=== PATIENT | male | born 1930 | race Caucasian/White ===

== ENCOUNTER 2017-08-05 12:24 | Outpatient (CLI) | payer OTHER | END 2017-08-05 12:25 | disposition critical access hospital (66) | LOC: EMS 12:24 | PROVIDERS: ATTEND Surgery | DX: M25.551 Pain in right hip (principal); M25.512 Pain in left shoulder; W01.0XXA Fall on same level from slipping, tripping and stumbling without subsequent striking against object, initial encounter; Y93.01 Activity, walking, marching and hiking; Y92.009 Unspecified place in unspecified non-institutional (private) residence as the place of occurrence of the external cause | CPT/HCPCS: A0425; A0427 ==

== ENCOUNTER 2017-08-05 13:00 | Emergency (ER) | payer OTHER ==
--- NOTE | 2017-08-05 13:29 | ED Physician Documentation ---
PD HPI Fall - Stated complaint Stated Complaint: GLF - Chief complaint Chief Complaint: Ext Problem - History obtained from History obtained from: Patient - History of Present Illness Mechanism of injury: Tripped (over extension cord, without preceding symptoms, verified by who was with him. Fell to left side with pain shoulder mainly, some of chestwall, left knee, and some pain righ foot that twisted with the cord.) Fall distance: Standing position Where injury occurred: Home Timing - onset: Today (just [employer]) Injury(ies) location: Chest, Left Uppper Extremity (shoulder pain with any ROM.) , Right Lower Extremity (foot twisted), Left Lower Extremity (knee contusion/ abrasion). No: Head, Neck Associated symptoms: No: LOC, AMS, Neck pain, Weakness, Paresthesias Worsens with: Movement Contributing factors: No: Anticoagulated, Intoxicated Similar symptoms before: Has not had sx before Recently seen: Not recently seen Review of Systems Constitutional: denies: Fever, Chills Nose: denies: Rhinorrhea / runny nose, Congestion Throat: denies: Sore throat Cardiac: reports: Chest pain / pressure (mild left lateral where he landed). denies: Palpitations, Pedal edema, Calf pain Respiratory: denies: Dyspnea, Cough, Wheezing GI: denies: Abdominal Pain, Nausea, Vomiting, Diarrhea Skin: reports: Abrasion (s) (left knee). denies: Laceration (s) Musculoskeletal: denies: Neck pain, Back pain Neurologic: denies: Generalized weakness, Focal weakness, Numbness, Near syncope , Syncope, Altered mental status, Headache, Head injury Endocrine: denies: Weight loss Immunocompromised: denies: Immunocompromised PD PAST MEDICAL HISTORY - Past Medical History Past Medical History: Yes Cardiovascular: None Respiratory: None : Other - Present Medications Home Medications: Ambulatory Orders Medication Instructions Recorded Confirmed Atorvastatin Calcium 40 mg PO QPM 09/30/14 08/05/17 Cyanocobalamin (Vitamin B-12) 1,000 mcg PO DAILY 07/23/16 08/05/17 [B-12] Enzalutamide [Xtandi] 4 cap PO 1200 07/23/16 08/05/17 Cholecalciferol (Vitamin D3) 2,000 units PO DAILY 07/24/16 08/05/17 [Vitamin D3] Goserelin [Zoladex] 10.8 mg SUBQ [id number] 07/24/16 08/05/17 Acetaminophen [Tylenol] 650 mg PO Q4HR PRN #0 tablet 07/28/16 08/05/17 Docusate Sodium 250Mg Capsule 250 - 500 mg PO DAILY capsule 07/28/16 08/05/17 [Colace 250Mg Capsule] Senna [Senokot] 8.6 - 17.2 mg PO DAILY tablet 07/28/16 08/05/17 HYDROcod/ACETAM 5/325 [Noxon 5/325] 1 tab PO Q6H PRN #15 tablet 08/05/17 Naproxen 375 mg PO BID #20 tablet 08/05/17 - Allergies Allergies/Adverse Reactions: Allergies Allergy/AdvReac Type Severity Reaction Status Date / Time No Known Drug Allergies Allergy Verified 07/23/16 19:28 - Social History Does the pt smoke?: No Smoking Status: Never smoker Does the pt drink ETOH?: Yes Does the pt have substance abuse?: No - Family History Family history: reports: Non contributory - Immunizations Immunizations are current?: Yes - POLST Patient has POLST: No PD ED PE NORMAL - Vitals Vital signs reviewed: Yes - General General: Alert and oriented X 3, Well developed/nourished - HEENT HEENT: Atraumatic - Neck Neck: Supple, no meningeal sign, No adenopathy - Cardiac Cardiac: RRR, No murmur - Respiratory Respiratory: Clear bilaterally, Other (some chestwall tenderness left side. ) - Abdomen Abdomen: Soft, Non tender - Male Male : Deferred - Rectal Rectal: Deferred - Derm Derm: Normal color, Warm and dry, Other (abrasion left knee without effusion and has good ROM. ) - Extremities Extremities: Other (right foot with some tenderness on ROM through mid foot. No ankle tenderness. Left shoulder tender at proximal humerus and pain with any attempted ROM. Some swelling deformity noted. ) - Neuro Neuro: No motor deficit, No sensory deficit, Other (good pulses, color and cap refill in hand/fingers. ) Results - Vitals Vitals: Oxygen O2 Source Room air - Labs Labs: Laboratory Tests 08/05/17 17:13 POC Whole Bld Glucose 172 H - Rads (name of study) left shoulder Radiology: Prelim report reviewed (proximal humeral neck fracture, displaced, minimally angulated.) chest Radiology: Prelim report reviewed (no acute deformity) left knee Radiology: Prelim report reviewed (no fracture) right foot Radiology: Prelim report reviewed (no fracture) PD MEDICAL DECISION MAKING - ED course Complexity details: reviewed results, considered differential, d/w patient, d/w foreign law consultant (Dr. Mcallister, who reviewed the xrays and recommended sling/conservative with followup. ) Departure - Departure Disposition: 01 Home, Self Care Clinical Impression: Fall from slip, trip, or stumble Qualifiers: Encounter type: initial encounter Qualified Code(s): W01.0XXA - Fall on same level from slipping, tripping and stumbling without subsequent striking against object, initial encounter Fx humeral neck Qualifiers: Encounter type: initial encounter Fracture type: closed Laterality: left Qualified Code(s): S42.212A - Unspecified displaced fracture of surgical neck of left humerus, initial encounter for closed fracture Contusion, knee Qualifiers: Encounter type: initial encounter Laterality: left Qualified Code(s): S80.02XA - Contusion of left knee, initial encounter Chest wall contusion Qualifiers: Encounter type: initial encounter Laterality: left Qualified Code(s): S20.212A - Contusion of left front wall of thorax, initial encounter Foot sprain Qualifiers: Encounter type: initial encounter Laterality: left Qualified Code(s): S93.602A - Unspecified sprain of left foot, initial encounter Condition: Stable Record reviewed to determine appropriate education?: Yes Instructions: ED Fx Shoulder Follow-Up: Feliciano Palumbo MD [Provider Admit Priv/Credential] - Prescriptions: HYDROcod/ACETAM 5/325 [Noxon 5/325] 1 tab PO Q6H PRN #15 tablet PRN Reason: Pain Naproxen 375 mg PO BID #20 tablet Comments: Sling for the shoulder for the next 4-6 weeks likely. Follow-up with orthopedics in 1 week, call today or tomorrow for an appointment. Find the best position of comfort for the shoulder fracture. Use naproxen or ibuprofen twice daily for the pain and add Tylenol or hydrocodone if needed. Drink lots of fluids. Continue your other usual medications. Discharge Date/Time: 08/05/17 18:54
--- NOTE | 2017-08-05 14:37 | XRAY Preliminary Report ---
Exam: XR CHEST 2 VIEW X-RAY IMPRESSION: 1. No acute cardiopulmonary disease seen. 2. No displaced acute rib fractures are seen. Moderate L1 compression deformity and mild compression deformities at multiple levels in the lower thoracic spine, appear more chronic, however acute compre ssion fracture is not excluded in the appropriate clinical setting. Acute left humeral neck fracture. [facility] SITE ID: [id number]
--- NOTE | 2017-08-05 14:44 | XRAY Report ---
EXAM: CHEST RADIOGRAPHY EXAM DATE: 08/05/2017 02:23 PM. CLINICAL HISTORY: Chest pain left sided. Fall. COMPARISON: Ribs and chest 09/30/2014. TECHNIQUE: 2 views. FINDINGS: Lungs/Pleura: No consolidation, pleural effusion or pneumothorax. Mediastinum: Heart and mediastinal contours are unremarkable. Other: No displaced acute rib fractures are seen. Moderate L1 compression deformity and mild compress ion deformities at multiple levels in the lower thoracic spine appear more chronic; however, acute co mpression fracture is not excluded in the appropriate clinical setting. Acute left humeral neck fract ure. IMPRESSION: 1. No acute cardiopulmonary disease seen. 2. No displaced acute rib fractures are seen. Moderate L1 compression deformity and mild compression deformities at multiple levels in the lower thoracic spine appear more chronic; however, acute compre ssion fracture is not excluded in the appropriate clinical setting. Acute left humeral neck fracture. [facility] Referring Provider Line: [phone] SITE ID: [id number]
--- NOTE | 2017-08-05 14:44 | XRAY Preliminary Report ---
Exam: XR FOOT 3 VIEW RT IMPRESSION: 1. Flattened appearance of the first metatarsal head with cortical irregularity at the articular surf jose lateral aspect along with osteophytes consistent with moderate first metatarsophalangeal osteoart hritis. Acute first metatarsal head fracture not excluded in the appropriate clinical setting. [facility] SITE ID: [id number]
--- NOTE | 2017-08-05 14:45 | XRAY Report ---
EXAM: LEFT SHOULDER RADIOGRAPHY EXAM DATE: 08/05/2017 02:23 PM. CLINICAL HISTORY: Injury. Fall, left shoulder injury. COMPARISON: Chest/RIBS 09/30/2014. TECHNIQUE: 3 views. FINDINGS: Bones: New acute impacted left humeral neck fracture with mild lateral displacement. Joints: No dislocation. Mild acromioclavicular and glenohumeral degenerative joint disease. IMPRESSION: New acute impacted left humeral neck fracture with mild lateral displacement. [facility] Referring Provider Line: [phone] SITE ID: [id number]
--- NOTE | 2017-08-05 14:45 | XRAY Report ---
EXAM: RIGHT FOOT RADIOGRAPHY EXAM DATE: 08/05/2017 02:21 PM. CLINICAL HISTORY: Fall; tripped and fell. COMPARISON: None. TECHNIQUE: 3 views. FINDINGS: Flattened appearance of the first metatarsal head with cortical irregularity at the articul ar surface lateral aspect along with osteophytes consistent with moderate first metatarsophalangeal o steoarthritis. Acute first metatarsal head fracture not excluded in the appropriate clinical setting. Mild diffuse interphalangeal osteoarthritis. No dislocation. Bones are demineralized. Small calcaneal bone spurs. Arterial calcifications. IMPRESSION: 1. Flattened appearance of the first metatarsal head with cortical irregularity at the articular surf jose lateral aspect along with osteophytes consistent with moderate first metatarsophalangeal osteoart hritis. Acute first metatarsal head fracture not excluded in the appropriate clinical setting. [facility] Referring Provider Line: [phone] SITE ID: [id number]
--- NOTE | 2017-08-05 14:49 | XRAY Report ---
EXAM: LEFT KNEE RADIOGRAPHY EXAM DATE: 08/05/2017 02:23 PM. CLINICAL HISTORY: Tripped and fell. Left knee pain COMPARISON: None. TECHNIQUE: 3 views. FINDINGS: Bones: No evidence for acute fracture. Joints: No dislocation or effusion. [id number] medial compartment femoral tibial joint space na rrowing with mild osteophytes. Mild patellofemoral osteophytes. Soft Tissues: Arterial calcifications. No significant soft tissue swelling. IMPRESSION: 1. No evidence for acute fracture. 2. Left knee degenerative joint disease as above. [facility] Referring Provider Line: [phone] SITE ID: [id number]
[2017-08-05] MEDS ORDERED: HYDROmorphone 1 MG/ML SYRINGE IVP STA (15:38)
[2017-08-05] MEDS ORDERED: KETOROLAC 60 MG/2 ML VIAL IVP STA (15:38)
[2017-08-05 18:35] VITALS: BP 114/72
== END 2017-08-05 18:54 | disposition home or self-care (01) ==
LOC: EDUNIT# → ED 13:00
DX: S42.212A Unspecified displaced fracture of surgical neck of left humerus, initial encounter for closed fracture (principal); S80.02XA Contusion of left knee, initial encounter; S93.602A Unspecified sprain of left foot, initial encounter; W01.0XXA Fall on same level from slipping, tripping and stumbling without subsequent striking against object, initial encounter; Y92.009 Unspecified place in unspecified non-institutional (private) residence as the place of occurrence of the external cause
CPT/HCPCS: 71046; 73030; 73562; 73630; 96374; 96375; 99284; J1170